=== PATIENT | female | born 2000 | race Caucasian/White ===

== ENCOUNTER 2024-11-17 13:53 | Day surgery (SDC) | payer BC, SELFPAY ==
[2024-11-17] VITALS (10 sets, daily range): BP systolic 91–140; BP diastolic 55–83; BMI 25.1
--- NOTE | 2024-11-17 09:27 | ED.GENMED ---
History of Present Illness
General
Chief Complaint: Flank Pain
Source: patient
Exam Limitations: none
Time Seen by Provider: 11/17/24 09:19
History of Present Illness
History of Present Illness:
24yoF with no significant past medical history presenting with her boyfriend for evaluation of flank pain. Patient woke up from sleep around 4 AM this morning with severe pain in her right flank. Pain radiates to the right lower quadrant. She was
able to go to sleep but woke up again 2 hours later with worsening pain. She also reports nausea and had 1 episode of vomiting in the parking lot. No history of similar symptoms in the past. She did take ibuprofen prior to arrival but believes
she vomited this up. She denies any urinary symptoms. Her mother is an ER nurse and thought she may have a kidney stone. No previous abdominal surgeries. Last menstrual period was 1 week ago.
Phy Exam
Physical Exam
Physical Exam:
Appears uncomfortable due to pain
General Physical Exam
General Presentation: mild distress
General Skin: warm and dry
General Habitus: normal
General Mental: alert
Gastrointestinal Exam
Gastrointestinal Exam: non tender, soft, non distended and cva tenderness (+R CVA tenderness)
Neurological Exam
Neurological Exam: alert
[place] Coma Scale
Eye Opening: Spontaneous
Verbal Response: Oriented
Motor Response: Obeys Commands
GCS Total Score: 15
Skin Exam
Skin Exam: normal color and warm/dry
Psychiatric Exam
Psychiatric Exam: normal mood/affect
Course
Orders/Labs/Results
Orders:
Orders
11/17/24 09:01
Test Result ONCE
11/17/24 09:13
CMP [Comprehensive Metabolic Panel] Urgent
Complete Blood Count/With Diff Urgent
HCG, Serum Qualitative Screen Urgent
11/17/24 09:20
Urinalysis Reflex To Culture Urgent
11/17/24 09:24
0.9% Sodium Chloride 1000 ml [Nss] 1,000 ml IV BOLUS
HYDROmorphone [Dilaudid] 0.5 mg IV NOW STA
Ketorolac [Toradol] 15 mg IV NOW STA
Ondansetron Injectable [Zofran] 4 mg IV NOW STA
11/17/24 09:25
CT Abd/pel Without Iv Or Oral Urgent
Comment:
Reason For Exam: R flank pain radiating to RLQ
11/17/24 11:16
Pelvis & Transvaginal US [US Pelvis W Transvag Combined] Urgent
Comment:
Reason For Exam: RLQ pain, possible cyst on CT
11/17/24 11:18
0.9% Sodium Chloride 1000 ml [Nss] 1,000 ml IV BOLUS
HYDROmorphone [Dilaudid] 0.5 mg IV NOW STA
Ketorolac [Toradol] 15 mg IV NOW STA
11/17/24 12:09
HYDROmorphone [Dilaudid] 0.5 mg IV NOW STA
Abnormal Lab Results
11/17/24
09:13
MCH 31.4 H pg
(27.0-31.0)
MPV 10.9 H fL
(7.4-10.4)
Absolute Neuts (auto) 6.6 H 10^3/uL
(1.4-6.5)
Absolute Monos (auto) 0.7 H 10^3/uL
(0.1-0.6)
Lymphocytes % 18.5 L %
(20.5-51.1)
Chloride 110 H mmol/L
(98-107)
Carbon Dioxide 21 L mmol/L
(22-30)
Glucose 115 H mg/dl
(70-99)
11/17/24 09:13
11/17/24 09:13
Vital Signs
Initial and Last Documented VS:
Initial Vital Signs
Temp Pulse Resp BP Pulse Ox
98.5 F 91 18 140/83 99
11/17/24 07:59 11/17/24 07:59 11/17/24 07:59 11/17/24 07:59 11/17/24 07:59
Last Documented Vital Signs
Temp Pulse Resp BP Pulse Ox
98.5 F 59 16 116/74 98
11/17/24 07:59 11/17/24 12:08 11/17/24 12:08 11/17/24 12:08 11/17/24 12:08
MDM/Problems Addressed
Differential Diagnosis Includes:
24yoF here with severe R flank pain radiating to RLQ that woke her up from sleep this AM. Associated with n/v. She is mildly hypertensive with otherwise stable vitals. She appears very uncomfortable on exam due to pain. Abdominal exam is relatively
benign without rebound or guarding. Differential diagnosis includes but is not limited to: kidney stone, ovarian torsion, appendicitis
Initial ED plan: Check CBC, CMP, HCG, UA, and CT abdomen without contrast. IV Zofran, Toradol, Dilaudid, and fluid bolus for symptoms.
*Pulse Oximetry
SaO2: 99
Oxygen Mode of Delivery: Room air
Patient hypoxic: no (99%)
*Critical Care Note
Total Time (30-74mins, 75-104mins- exclusive of procedures): Not Applicable
Update Note
Update Note:
CT shows a large mass in the pelvis suggestive of an ovarian teratoma measuring 9.7 x 10.3 x 8.9 cm. Patient requiring multiple doses of Dilaudid for pain control. Concern for intermittent torsion. Case discussed with gynecology and patient
evaluated by Dr. Anderson. Patient sent for pelvic ultrasound which shows vascular flow along the peripheral of the mass. Patient transported directly to the OR.
ED Attending Note
-
Portions of this chart may have been created with voice recognition software.� Occasional wrong word or��sound alike� substitutions may have occurred due to the inherent limitations of voice recognition software.
Discharge Plan
Departure
Patient Disposition: OR
Date of Disposition: 11/17/24
Time of Disposition: 13:27
Presentation/result/management discussed w/ accepting MD/DO: Dr. Anderson
Discharge Problem:
Ovarian mass
Referrals:
NONE,* [Family Provider, Internal Medicine]
Interventions
Interventions:
*Risk Screen - Suicide Last Done: 11/17/24 07:59
*General Assessment Last Done: 11/17/24 09:22
*Neglect/Abuse Screening Last Done: 11/17/24 07:59
*ED- Fall Risk Assessment Last Done: 11/17/24 09:22
*ED COVID-19 Vaccine History Last Done: 11/17/24 07:59
YT-Jkpwma-Oxiazwjlyh Assessment Last Done: 11/17/24 09:22
ED-Female Genitourinary Assessment Last Done: 11/17/24 09:22
Discharge Date and Time
Print Language: ITALIAN
[2024-11-17 09:28] LABS: Hematocrit 38.0 % (37.0-47.0); Hemoglobin 13.9 g/dL (12.0-16.0); Mean Corp Hgb Conc. 36.6 g/dL (33.0-37.0); Mean Corpuscular Volume 85.8 fL (81.0-99.0); Nucleated Red Blood Cells % 0 %; Platelet Count 184 10^3/uL (130-400); Red Cell Dist. Width 11.9 % (11.5-14.5)
[2024-11-17] MEDS: DILAUDID 0.5 MG IV ×3 (09:31→12:10)
[2024-11-17] MEDS: NSS 1000 IV ×2 (09:31→11:22)
[2024-11-17] MEDS: TORADOL 15 MG IV ×2 (09:32→11:22)
[2024-11-17] MEDS: ZOFRAN 4 MG IV (09:32)
[2024-11-17 09:53] LABS: HCG, Serum Qualitative Screen Negative
[2024-11-17 10:01] LABS: ALT (SGPT) 13 U/L (0-35); AST (SGOT) 21 U/L (14-36); Albumin 4.8 g/dl (3.5-5.0); Alkaline Phosphatase 68 U/L (38-126); Blood Urea Nitrogen 15 mg/dl (7-17); Calcium 9.8 mg/dl (8.4-10.2); Carbon Dioxide 21 mmol/L (22-30); Chloride 110 mmol/L (98-107); Estimated Creatinine Clearance 99 ml/min; Glucose 115 mg/dl (70-99); Potassium 4.0 mmol/L (3.5-5.1); Sodium 140 mmol/L (135-145); Total Protein 7.3 g/dl (6.3-8.2); eGFR > 60.00
--- NOTE | 2024-11-17 12:34 | HPS.HSE ---
Family Physician
-
Family Physician: * NONE
Chief Complaint
-
RLQ pain
History of Present Illness
HPI: Patient is a 24yo G0 who presented to the ED with complaints of right lower quadrant pain that radiates to her back. She reports that it started at 4am and she though it was gas so she went back to sleep and then woke up with severe pain with
nausea and vomiting. She says this has never happened before. She denies vaginal bleeding. LMP was [address] scan showed a large complex mass in the pelvis measuring 9.7x10.3x8.9cm concerning for an ovarian teratoma. Pelvic US showed left
complex cystic mass measuring 11.6x7.9x7.7cm consistent with a teratoma. Given patient's amount of pain despite multiple dose of Dilaudid, the was concern for ovarian torsion.
PMHx: denies
Meds: OCP
Surghx: tonsillectomy, wisdom teeth
NKDA
Socialhx: occ etoh, denies tobacco or illicit drug use
Famhx: mom w/ breast cancer
Gynhx: regular, monthly periods, sexually active with her boyfriend, denies hx of STDs or abnormal Pap smears
Medical History
Past Medical History
Past Medical History: Reports None
Past Surgical History: Reports Tonsilectomy
Social History
Tobacco: Non-smoker
Alcohol: Occasional
Drug: None
Family History
Family History: Not pertinent
Allergies / Home Medications
Allergies reflects when Allergies were last updated in [facility].
Home Medications with original date entered in [facility]
Allergy/Medication List:
Meds: OCP
NKDA
Review of Systems
-
A 12 point ROS was completed and negative except as noted: Yes
Physical Exam
Vital Signs
Vital Signs
Temp Pulse Resp BP Pulse Ox
98.5 F 59 16 116/74 98
11/17/24 07:59 11/17/24 12:08 11/17/24 12:08 11/17/24 12:08 11/17/24 12:08
Physical Exam
General: Well Developed and Well Nourished
HEENT: NormoCephalic
Respiratory: Non Labored Respirations
Cardiac: Regular Rhythm
GI: Non Tender and Non Distended
Genito-urinary: Other (Bimanual exam with no tenderness, however pt just received dilaudid- normal sized uterus, fullness of the right adnexa)
Skin: Warm and Dry
Neuro: Awake and Alert
Psych: Calm
Laboratory Results
-
11/17/24 09:13
11/17/24 09:13
Laboratory Results
Total Bilirubin 0.7 mg/dl (0.2-1.3) 11/17/24 09:13
AST 21 U/L (14-36) 11/17/24 09:13
ALT 13 U/L (0-35) 11/17/24 09:13
Alkaline Phosphatase 68 U/L (38-126) 11/17/24 09:13
Impression/Plan
-
IMPRESSION:
Patient is a 24yo G0 who presents with complaints of RLQ pain found to have large left ovarian complex cyst, consistent with a teratoma
PLAN:
- Pelvic US and CT reviewed. Large left teratoma present. With the amount of pain patient is having, concern for ovarian torsion. Recommend proceeding to the OR for diagnostic laparoscopy, left ovarian cystectomy, possible left salpingo
oophorectomy, possible open. Discussed if she has to have the ovary removed, her fertility will remain the same. Also reviewed post op expectations for both a laparoscopic and open procedure. Risks, benefits, alternatives including bleeding,
infection, damage to surrounding structures, and need for future operations reviewed. She was consented for a blood transfusion in case of emergency. Consents signed.
- Patient is from [place] and does not have a PROPERTY AND SUPPLY OFFICER here, but she is currently living here. Will have her follow up in our office.
- OR notified
--- NOTE | 2024-11-17 20:02 | OR.RPT ---
Operative Report
Operative Report
Date of procedure: 11/17/2024
Preop diagnosis: Left ovarian cyst, suspected ovarian torsion
Postop diagnosis: Right ovarian cyst, ovarian torsion
Procedure: Diagnostic laparoscopy, laparoscopic right oophorectomy
Surgeon: Lesly Anderson DO
Validation Consultant: Betty Baldwin MD
Anesthesia: General, Dr. Truong
EBL: 20cc
Urine output: 800cc
Findings:
- Large 11cm right ovarian cyst in posterior cul de sac with ovarian torsion. No normal right ovarian tissue. Normal appearing left ovary and fallopian tube. After the right fallopian tube was de-torsed, it was normal appearing.
- Part of cyst of filled with yellow serous fluid and in another septation was solid and filled with skin, hair, and bone, consistent with dermoid
- Normal appearing cervix
Complications: none
Pathology: right ovarian cyst fluid, right ovary with ovarian cyst
Indication: Patient is a 24yo G0 who presented to the ED with complaints of right lower quadrant pain. She was found to have a large pelvic mass on CT, consistent with a teratoma. Pelvic ultrasound was ordered and showed a left complex cystic mass
measuring 11.6x7.9x7.7cm consistent with a teratoma. Given patient's amount of pain despite multiple dose of Dilaudid, the was concern for ovarian torsion. Diagnostic laparoscopy with ovarian cystectomy, possible salpingo-oophorectomy was
recommended. Risks, benefits and alternatives were reviewed and all questions answered. Consents were signed.
Procedure: Patient was taken to the operating room and placed under general anesthesia. She was placed in the dorsal lithotomy position with Yovanny type stirrups. She was prepped and draped in the normal sterile fashion. The vagina was prepped with
Betadine and the abdomen with ChloraPrep. A Lynch catheter was placed draining clear urine. A weighted speculum was placed in the posterior vagina and a Fleming retractor in the anterior vagina, revealing good visualization of the cervix. The cervix
was grasped with a single tooth tenaculum. The uterus was sounded. The cervix was sequentially dilated. A Humi manipulator was introduced to the fundus. The tenaculum was removed from the cervix.
Gloves were changed and attention was turned to the abdomen. A 5mm incision was made inferior to the umbilicus. Veress needle was introduced and intraabdominal pressure was <5mmHg. The abdomen was insufflated to 15mmHg. A 5mm Optiview trocar was
inserted under direct visualization. Abdominal survey revealed a large right ovarian cyst with ovarian torsion. Two 5mm accessory Optiview trocar were placed under direct visualization in the right and left lower quadrants. There did appear to be
any normal ovarian tissue. Some of the ovarian cyst appeared to be fluid filled. The ovary and cyst were too large to be de-torsed. A needle aspirator was introduced and the cyst was aspirated of yellow serous fluid. The cyst fluid was sent to
pathology. The left accessory trocar was removed and incision was extended to allow for 12mm trocar to be placed. A 12mm trocar was advanced under direct visualization. At this point, the right fallopian tube and ovary were de-torsed. Since there
was no normal ovarian tissue, decision was made to proceed with a right oophorectomy. The right fallopian tube appeared normal and was left in place. Right oophorectomy was performed. The infundibulopelvic ligament was cauterized and cut with the
LigaSure device. The mesosalpinx was then ligated with the LigaSure device along the ovary. At this point, the right ovary and cyst were free. Attempt was made to place into a 10mm EndoCatch, but was not able to fit. The left lower quadrant incision
was extended to about 5cm with the 11 blade. The fascia was also dissected with blunt dissection. The abdomen was desufflated due to the larger incision. The ovary and cyst were brought to the incision and were extracted. The cyst was fluid filled
and another compartment was solid with parts of skin, hair, and bone, consistent with a dermoid. The fascia of the left lower quadrant incision was closed with 0 Vicryl in a running continuous fashion. The abdomen was insufflated again. The
oophorectomy site was hemostatic. The abdomen was suctioned and irrigated. There appeared to be no bleeding. All instruments were removed. The umbilical and right lower quadrant incisions were closed with a single interrupted stitch with 4-0
Monocryl. The left lower quadrant incision was closed in running subcuticular fashion with 4-0 Monocryl. All incisions were covered with skin glue.
The Lynch catheter had 800cc of clear urine and was removed. The Humi manipulator was also removed. The cervix was visualized and was hemostatic. Counts were correct. The patient was awakened from anesthesia and transferred to PACU in stable
condition.
== END 2024-11-17 18:58 | disposition home or self-care (01) ==
LOC: SDS 13:53
PROVIDERS: EMERGENCY PHYSICIAN Emergency Medicine
DX: N83.201 Unspecified ovarian cyst, right side (principal); N83.511 Torsion of right ovary and ovarian pedicle
CPT/HCPCS: 58661; 49322; 74176; 76830; 76856; 80053; 84703; 85025; 88112; 88307; 88311; 96361; 96374; 96375; 96376; 99285